=== PATIENT | male | born 1995 | race Two or more races ===

== ENCOUNTER 2025-08-16 10:14 | Emergency (ER) | payer SELFPAY ==
--- NOTE | 2025-08-16 10:39 | XR_ITS ---
EXAMINATION: PA lateral chest 2 views TECHNIQUE: Upright PA lateral chest 2 views Date and time: August 16, 2025 1057 hours INDICATIONS: Right-sided chest pain beginning 2 days ago FINDINGS: Normal heart size The lungs are clear. The osseous rectors are intact IMPRESSION: No active disease
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
[2025-08-16 10:49] VITALS: BP 144/76; PULSE 78; RESP 18; TEMP 36.9; O2SAT 99; BMI 21.9
== END 2025-08-16 14:27 | disposition home or self-care (01) ==
PROVIDERS: Emergency Provider Nurse Practitioner Family
DX: R07.9 Chest pain, unspecified (principal)
CPT/HCPCS: 71046; 99283